=== PATIENT | female | born 1995 | race Caucasian/White ===

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

== ENCOUNTER 2017-01-14 16:18 | Emergency (ER) | payer SELFPAY ==
[2017-01-14] MEDS ORDERED: NORMAL SALINE 1,000 ML IV ONE ×2 (16:55→18:30)
[2017-01-14 17:04] LABS: Cocaine Ur Negative (NEGATIVE); Urine Barbiturate Negative (NEGATIVE); Urine Benzodiazepines Negative (NEGATIVE); Urine Opiates Negative (NEGATIVE); Urine PCP Negative (NEGATIVE)
[2017-01-14 17:07] LABS: Urine THC Positive (NEGATIVE)
[2017-01-14 17:08] LABS: Hematocrit 42.8 % (37.0-47.0); Hemoglobin 14.6 gm/dL (12.5-16.0); Mean Cell Volume 87.7 fl (78-100); Mean Corpuscular Hemoglobin 29.9 pg (27-31); Mean Corpuscular Hgb Conc 34.1 g/dl (32-36); Mean Platelet Volume 10.4 fl (6.0-9.5); Neutrophil # 5.1 K/mm3 (1.3-6.0); Neutrophil % 62.2 % (42-75.0); Platelet Count 224 K/mm3 (150-450); Red Blood Count 4.88 M/mm3 (4.2-5.4); Red Cell Distribution Width 12.3 % (11.5-14.0); White Blood Count 8.2 K/mm3 (4.0-10.5)
[2017-01-14 17:26] LABS: ALT 25 U/L (19-67); AST 17 U/L (0-48); Albumin * 4.3 gm/dl (3.4-5.0); Alkaline Phosphatase * 79 U/L (50-170); Anion Gap 17.5 mmol/L (6.8-13.8); BUN/Creatinine Ratio 6.9 (9.0-21.6); Bilirubin, Total 0.5 mg/dL (0.0-1.1); Blood Urea Nitrogen 6 mg/dL (3-23); CK Total * 149 U/L (0-259); Ca. Corrected For Albumin 8.2 mg/dL (8.4-10.2); Calcium * 8.8 mg/dL (7.9-10.9); Carbon Dioxide 24.6 mmol/L (24-32.6); Chloride 105 mmol/L (97-106); Glucose * 95 mg/dL (70-110); Potassium 4.1 mmol/L (3.4-4.6); Salicylate Less than 2.8 mg/dL (2.8-20.0); Sodium 143 mmol/L (132-142); Total Protein 7.9 gm/dL (6.2-8.2); Troponin I Less than 0.017 ng/ml (0.00-0.10)
[2017-01-14 17:27] LABS: Urine Appearance Clear; Urine Bilirubin Negative (NEGATIVE); Urine Blood Negative /ul (NEGATIVE); Urine Color Yellow; Urine Ketone Negative (NEGATIVE); Urine Protein Negative (NEGATIVE); Urine Specific Gravity 1.015 SP.GR. (1.005-1.010); Urine Urobilinogen Normal (NORMAL); Urine pH 7.5 pH (5.0-7.0)
[2017-01-14] MEDS ORDERED: ACETAMINOPHEN 325 MG TABLET PO ONE (17:34)
[2017-01-14] MEDS ORDERED: ACETAMINOPHEN 325 MG TABLET ONE (17:35)
[2017-01-14 17:37] LABS: Urine Nitrite Positive (NEGATIVE)
[2017-01-14 17:38] LABS: Urine Bacteria 4+; Urine RBC None Seen /hpf (0-5)
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
[2017-01-14 19:44] VITALS: BP 111/66
== END 2017-01-14 19:35 | disposition home or self-care (01) ==
LOC: ER 16:18
DX: M79.1 Myalgia (principal); N39.0 Urinary tract infection, site not specified
CPT/HCPCS: 36415; 71020; 80053; 80307; 81001; 82550; 84484; 84703; 85025; 87086; 93005; 99284; G0480; G0481